=== PATIENT | female | born 1960 | race Caucasian/White ===

== ENCOUNTER 2020-04-27 06:48 | Day surgery (SDC) | payer OTHER, SELFPAY ==
[2020-04-21 10:34] VITALS: BMI 38.4
--- NOTE | 2020-04-23 10:06 | MHC.SHP ---
Pre-Procedural Eval Section A The patient is an INPATIENT: No The History & Physical has been completed within 30 days and I have reviewed it.: Yes Section B Chief Complaint: cataract left eye Allergies: Allergies Allergy/AdvReac Type Severity Reaction Status Date / Time No Known Allergies Allergy Verified 04/21/20 10:47 Plan Diagnosis/Plan: Unchanged I have reviewed the history and physical and performed a pertinent physical examination on my patient. No changes have occurred unless specified.
--- NOTE | 2020-04-24 09:15 | P.CONAN_ITS ---
Documented by User: Viridiana Tay 04/24/20 09:16 HPI - Anesthesia Eval Consult details Narrative: 60yo F for Cataract Extraction IOL Insertion No prev cataract PCP cleared chronic prednisone for lupus [facility] Past Medical History Medical History Back pain Depression History of lupus HTN (hypertension) Lab test negative for COVID-19 virus Sleep apnea Surgical History Surgical History H/O colonoscopy Hx of appendectomy Hx of hysterectomy Social History Social History (System 04/23/20 @ 10:53 by Eri Beverly) Smoking Status: Never smoker Use of substances other than those prescribed or required for medical reasons: No Advance Directives Information Provided: No Recently lost weight without trying: No Meds Allergies Allergy/AdvReac Type Severity Reaction Status Date / Time No Known Allergies Allergy Verified 04/27/20 07:15 Home Medications Medication Instructions Recorded Confirmed Type citalopram 10 mg PO DAILY 04/21/20 04/21/20 History hydrochlorothiazide 12.5 mg PO DAILY 04/21/20 04/21/20 History lisinopril 10 mg PO DAILY 04/21/20 04/21/20 History prednisone 5 mg PO DAILY 04/21/20 04/21/20 History Exam Exam Date and Time: April 24, 2020 0915 Height,Weight and Vital Signs: Height 5 ft 4 in Weight 101.605 kg Assessment and Plan Assessment Anesthesia Assessment: Chart Reviewed Documented by User: Marce Mcguire 04/27/20 07:23 [facility] Past Medical History Medical History Back pain Depression History of lupus HTN (hypertension) Lab test negative for COVID-19 virus Sleep apnea Surgical History Surgical History H/O colonoscopy Hx of appendectomy Hx of hysterectomy Social History Social History (System 04/23/20 @ 10:53 by Eri Beverly) Smoking Status: Never smoker Use of substances other than those prescribed or required for medical reasons: No Advance Directives Information Provided: No Recently lost weight without trying: No Meds Allergies Allergy/AdvReac Type Severity Reaction Status Date / Time No Known Allergies Allergy Verified 04/27/20 07:15 Home Medications Medication Instructions Recorded Confirmed Type citalopram 10 mg PO DAILY 04/21/20 04/21/20 History hydrochlorothiazide 12.5 mg PO DAILY 04/21/20 04/21/20 History lisinopril 10 mg PO DAILY 04/21/20 04/21/20 History prednisone 5 mg PO DAILY 04/21/20 04/21/20 History Exam Airway Mallampati Class: II TM Dist: >3cm Neck ROM: Full Heart: RRR Lungs: CTA Assessment and Plan Assessment Anesthesia Assessment: Anesthesia Plan Discussed and Chart Reviewed Final Anesthetic Review NPO: Yes (Sip water with meds) ASA Class: III Final Preanesthetic Review: Meds/Allgs Chart Reviewed and Consent Obtained/Reviewed Patient Risk: Low Procedure Risk: Low Anesthetic Plan Anesthetic Plan: MAC: Disposition: Standard PACU
[2020-04-27 07:18] VITALS: BP 145/71; PULSE 83; RESP 18; TEMP 36.7; O2SAT 97
[2020-04-27] MEDS: Lactated Ringers 500 ML 50 ML IV (07:22)
[2020-04-27] MEDS: Tetracaine HCl/PF 0.5% Oph Sol 4 ML DROPS 1 DROP EYE-LEFT (07:30)
[2020-04-27] MEDS: Phenylephrine HCL 2.5% Oph SoL 2 ML BOTTLE 1 DROP EYE-LEFT ×3 (07:32→07:43)
[2020-04-27] MEDS: Tropicamide 1 % Ophth Sol 3 ML BTL 1 DROP EYE-LEFT ×3 (07:35→07:45)
--- NOTE | 2020-04-27 08:53 | HO.PNOPHT ---
Ophthalmology Procedure Procedure Date of Service: 04/27/20 Ophthalmology Viscoelastic: Healon Duet Dual Pack Pro Ophthalmology Lenses: TECFRED [id number] (18) Procedure Notes: PREOPERATIVE DIAGNOSIS: Decreased visual acuity left eye secondary to cataract POSTOPERATIVE DIAGNOSIS: Same PROCEDURE: Left cataract extraction with intraocular lens insertion SURGEON: Dustin Stokes M.D. ANESTHESIA: Topical/MAC ESTIMATED BLOOD LOSS: None COMPLICATIONS: None After obtaining informed consent, the patient was brought to the operation room suite and placed in the supine position. After adequate sedation per anesthesia, topical drops of Tetracaine were given to the left eye. The eye was then prepped and draped in the usual sterile fashion. The operating room microscope was then positioned over the operative eye and a lid speculum placed. A paracentesis was created. Viscoelastic was then instilled into the anterior chamber. A three plane incision was then created temporally, utilizing a 2.85 mm keratome. Capsulotomy forceps were then utilized to create a circular tear capsulotomy. Hydrodissection and hydrodelineation were carried out until adequate mobilization of the nucleus occurred. Phacoemulsification was then utilized to remove the dense central nucleus followed by removal of the cortical material utilizing the automated aspiration irrigation unit. Viscoat elastic was instilled into the posterior capsular bag followed by placement of a posterior chamber intraocular lens without difficulty. The residual Viscoat elastic was then removed utilizing the automated IA machine. The wound was check and found to be watertight. The patient tolerated the procedure well and the lid speculum was removed. Intracameral injection of Vigamox 0.1 mL followed by a subtenon injection of Kenalog-40 0.2 mL were administered. The patient will be seen in the a.m.
[2020-04-27 08:55] VITALS: BP 125/71; PULSE 72; RESP 12; TEMP 36.9; O2SAT 97
--- NOTE | 2020-04-27 08:55 | HO.POSTANES ---
Post Anesthesia Evaluation Post Anesthesia Evaluation Vital Signs: Vital Signs Temp Pulse Resp BP Pulse Ox 04/27/20 07:18 98.1 F 83 18 145/71 H 97 Anesthesia: Monitored Mental Status: Awake Pain Control: Satisfactory Nausea/Vomiting: None Hydration: Adequate Anesthesia-Related Issues: No Anes. Related Issues
== END 2020-04-27 10:00 | disposition home or self-care (01) ==
PROVIDERS: PCP Internal Medicine; Visit Provider Ophthalmology
PROC: (CPT 66985; principal; 2020-04-27 09:00)
DX: H25.12 Age-related nuclear cataract, left eye (principal); H54.7 Unspecified visual loss; I10 Essential (primary) hypertension; M32.9 Systemic lupus erythematosus, unspecified; F32.9 Major depressive disorder, single episode, unspecified; G47.33 Obstructive sleep apnea (adult) (pediatric); Z79.52 Long term (current) use of systemic steroids; Z79.899 Other long term (current) drug therapy; Z99.89 Dependence on other enabling machines and devices; Z87.891 Personal history of nicotine dependence
CPT/HCPCS: 66984; J2250; J3010; J3300; V2632

== ENCOUNTER 2020-11-13 10:26 | Outpatient (REF) | payer OTHER, SELFPAY ==
--- NOTE | ~2020-11-13 | MM_ITS ---
EXAMINATION: MM SCREENING DIGITAL BREAST TOMOSYNTHESIS, BILATERAL CLINICAL INFORMATION: Screening. Asymptomatic. The lifetime risk of breast cancer based on the Tyrer-Cuzick Model is 8%. COMPARISON: Mammography: 10/30/2019, 08/06/2018, 06/07/2017 TECHNIQUE: Digital breast tomosynthesis is performed in both the craniocaudal and mediolateral oblique views along with computer-aided detection (CAD). Synthesized 2D images are generated from the tomosynthesis. FINDINGS: There are scattered areas of fibroglandular density (ACR BI-RADS breast composition Category b). There are no significant masses, abnormal calcifications, or other abnormalities. Parenchymal pattern is similar to prior studies. The axilla and skin contours are unremarkable. MM/MM tomosynthesis screening BI IMPRESSION: No mammographic evidence of malignancy. ASSESSMENT: BI-RADS 1: Negative RECOMMENDATION: Routine annual mammography screening. This patient's information was entered into a reminder system with a target due date for their next mammogram.
== END 2020-11-13 10:27 | disposition home or self-care (01) ==
LOC: HO.MAMMO 10:26
PROVIDERS: Visit Provider Internal Medicine
DX: Z12.31 Encounter for screening mammogram for malignant neoplasm of breast (principal)
CPT/HCPCS: 77063; 77067

== ENCOUNTER 2022-01-24 11:49 | Outpatient (REF) | payer OTHER, SELFPAY ==
--- NOTE | ~2022-01-24 | MM_ITS ---
EXAMINATION: MM SCREENING DIGITAL BREAST TOMOSYNTHESIS, BILATERAL CLINICAL INFORMATION: Screening. Asymptomatic. The lifetime risk of breast cancer based on the Tyrer-Cuzick Model is 9.3%. COMPARISON: Mammography: November 13, 2020 and studies dating back to October 07, 2013 TECHNIQUE: Digital breast tomosynthesis is performed in both the craniocaudal and mediolateral oblique views along with computer-aided detection (CAD). Synthesized 2D images are generated from the tomosynthesis. FINDINGS: The breasts are almost entirely fatty (ACR BI-RADS breast composition Category a). There are no significant masses, abnormal calcifications, or other abnormalities. MM/MM tomosynthesis screening BI IMPRESSION: No significant changes from prior exam. ASSESSMENT: BI-RADS 1: Negative RECOMMENDATION: Routine annual mammography screening. This patient's information was entered into a reminder system with a target due date for their next mammogram.
== END 2022-01-24 11:50 | disposition home or self-care (01) ==
LOC: HO.MAMMO 11:49
PROVIDERS: PCP Internal Medicine; Visit Provider Internal Medicine
DX: Z12.31 Encounter for screening mammogram for malignant neoplasm of breast (principal)
CPT/HCPCS: 77063; 77067

== ENCOUNTER 2022-04-13 13:09 | Outpatient (REF) | payer OTHER, SELFPAY ==
--- NOTE | ~2022-04-13 | MM_ITS ---
EXAMINATION: BONE DENSITOMETRY CLINICAL INDICATION: Menopausal. COMPARISON: None (current study represents initial baseline exam). TECHNIQUE: Using a [employer] DXA System (software version: 13.1) manufactured by [employer], dual-energy x-ray absorptiometry was performed of the lumbar spine and left hip. The images are of good technical quality. Summary results are attached. FINDINGS: AP SPINE L1-L4: BMD 1.018 g/cm2, Z-score -1.3, T-score -1.3, osteopenia. LEFT FEMUR, NECK: BMD 0.902 g/cm2, Z-score -0.5, T-score -1.0, normal. LEFT FEMUR, TOTAL: BMD 0.991 g/cm2, Z-score 0.0, T-score -0.1, normal. IDENTIFIED RISK FACTORS: Bilateral oophorectomy, early menopause, glucocorticoids (chronic), history of fracture (adult), hysterectomy, secondary osteoporosis, thiazide. HISTORY OF FRACTURE: Humerus, Ankle. MEDICATIONS: None listed. MM/XR DEXA axial skeleton IMPRESSION: 1. DIAGNOSIS: Osteopenia based on the lowest T-score value of -1.3 in the lumbar spine applying World Health Organization criteria. 2. 10-YEAR FRACTURE RISK PREDICTION, FRAX: Major osteoporotic fracture (clinical spine, forearm, hip or shoulder) 17.3%. Hip fracture 1.1%. 3. Treatment Recommendations: NOF guidelines recommend consideration for treatment in postmenopausal women and men age 50 and older presenting with the following: -A hip or vertebral (clinical or morphometric) fracture. -T-score less than or equal to -2.5 at the femoral neck or spine after appropriate evaluation to exclude secondary causes. -Low bone mass at the hip or spine and a 10-year fracture probability by FRAX of greater than or equal to 3% for hip fracture or greater than or equal to 20% for major osteoporotic fracture based on the [place] adapted WHO algorithm. 4. Other Recommendations: All treatment decisions require clinical judgment and consideration of individual patient factors, including patient preferences, comorbidities, previous drug use, risk factors not captured in the FRAX model (e.g. frailty, falls, vitamin D deficiency, increased bone turnover, interval significant decline in bone density) and possible under or overestimation of fracture risk by FRAX. Additional medical evaluation for secondary cause of low bone mineral density may be appropriate. FUTURE SCAN RECOMMENDATION: People with diagnosed cases of osteoporosis or at high risk for fracture should have regular bone mineral density tests. For patients eligible for Medicare, routine testing is allowed once every 2 years. The testing frequency can be increased to one year for patients who have rapidly progressing disease, those who are receiving or discontinuing medical therapy to restore bone mass, or have additional risk factors.
== END 2022-04-13 13:10 | disposition home or self-care (01) ==
LOC: HO.MAMMO 13:09
PROVIDERS: Visit Provider Nurse Practitioner Adult Health
DX: Z13.820 Encounter for screening for osteoporosis (principal); Z78.0 Asymptomatic menopausal state
CPT/HCPCS: 77080

== ENCOUNTER 2022-05-23 10:45 | Outpatient (REF) | payer OTHER, SELFPAY ==
--- NOTE | ~2022-05-23 | XR_ITS ---
EXAMINATION: XR CHEST CLINICAL INFORMATION: Symptoms and signs involving the chest COMPARISON: None TECHNIQUE: 2 views of the chest were obtained. FINDINGS: No significant abnormality is noted involving the heart, lungs, mediastinum, bony thorax or soft tissues. XR/XR chest 2V IMPRESSION: No acute disease.
[2022-05-23 14:44] LABS: Influenza A PCR NEGATIVE (Negative); Influenza B PCR NEGATIVE (Negative); Resp Syncy Virus RNA Qual PCR NEGATIVE (Negative); SARS COV2 PCR INHOUSE NEGATIVE (Negative)
== END 2022-05-23 10:46 | disposition home or self-care (01) ==
LOC: HO.HMGCX 10:45
PROVIDERS: PCP Internal Medicine; Visit Provider Physician Assistant
DX: Z20.822 Contact with and (suspected) exposure to COVID-19 (principal); R09.89 Other specified symptoms and signs involving the circulatory and respiratory systems; B34.9 Viral infection, unspecified
CPT/HCPCS: 0241U; 71046

== ENCOUNTER 2022-06-19 08:09 | Emergency (ER) | payer OTHER, SELFPAY ==
[2022-06-19 08:15] VITALS: BP 149/59; PULSE 65; RESP 16; TEMP 36.6; O2SAT 70; BMI 37.8
--- NOTE | 2022-06-19 09:05 | ED_ITS ---
HPI - Wound/Laceration General Chief Complaint: Wound/Laceration Stated Complaint: dog bite 06/18/22 Time Seen by Provider: 06/19/22 08:29 Source: patient Mode of arrival: ambulatory Limitations: no limitations History of Present Illness HPI narrative: 62-year-old female with no significant past medical history presents to the emergency department after sustaining a dog bite yesterday on her right forearm. She states the dog was her nieces and is up-to-date on all vaccinations including rabies. She states she has 2 puncture wounds on the inner aspect of her right forearm. She states after the bite she cleaned them well with soap and water, however; she states this morning she noted increased swelling without any drainage. She denies any fevers, chills, red streaking, paresthesias, or weakness of her right arm. She is unsure when her last tetanus shot was. Body four view annotation: 1. Related Data Home Medications Medication Instructions Recorded Confirmed citalopram 10 mg tablet 10 mg PO DAILY 04/21/20 04/21/20 hydrochlorothiazide 12.5 mg tablet 12.5 mg PO DAILY 04/21/20 04/21/20 lisinopril 10 mg tablet 10 mg PO DAILY 04/21/20 04/21/20 Previous Rx's Medication Instructions Recorded albuterol sulfate 90 mcg/actuation 1 inh inhalation QID PRN shortness 08/23/21 aerosol inhaler of breath or wheezing #6.7 grams amoxicillin 875 mg-potassium 1 tab PO BID 10 days #20 tabs 05/23/22 clavulanate 125 mg tablet prednisone 20 mg tablet 40 mg PO DAILY 5 days #10 tabs 05/23/22 doxycycline hyclate 100 mg capsule 100 mg PO BID 7 days #14 caps 06/19/22 metronidazole 500 mg tablet 500 mg PO TID 7 days #21 tabs 06/19/22 Allergies Allergy/AdvReac Type Severity Reaction Status Date / Time No Known Allergies Allergy Verified 05/23/22 10:29 Review of Systems Review of Systems: In addition to documented HPI above, the additional ROS was obtained: Constitutional: No Weight loss, No Fever, No Chills ENT/Mouth: No Ear Pain, No Nasal Congestion, No Sinus Pain, No Hoarseness, No sore throat, No Rhinorrhea, No Swallowing Difficulty Cardiovascular: No Chest Pain, No SOB Respiratory: No Cough, No Sputum, No Wheezing Gastrointestinal: No Nausea, No Vomiting, No Diarrhea, No Constipation, No Abdominal pain Genitourinary: No Dysuria, No Urinary Frequency, No Hematuria, No Urinary Incontinence/retention, No Urgency, No Flank Pain Musculoskeletal: No joint pain, No Myalgias, No Joint Swelling Skin: No Skin Lesions, No rash. Neuro: No Weakness, No Numbness, No Paresthesias PMFSH Past Medical History Source: old records reviewed and obtained from family Medical History (Updated 06/19/22 @ 08:57 by Aliyah Matamoros NP) Back pain Depression History of lupus HTN (hypertension) Lab test negative for COVID-19 virus Sleep apnea Surgical History H/O colonoscopy Hx of appendectomy Hx of hysterectomy Social History Social History (System 04/23/20 @ 10:53 by Eri Beverly) Patient Tobacco Use Status: Never used Tobacco Advance Directives: No Advance Directives Information Provided: No Physical Exam Vital Signs: Vital Signs: Last Vital Signs Temp 97.9 F 06/19/22 08:15 Pulse 65 06/19/22 08:15 Resp 16 06/19/22 08:15 BP 149/59 H 06/19/22 08:15 Pulse Ox 70 L 06/19/22 08:15 O2 Del Method 06/19/22 08:15 BMI result Body Mass Index 37.8 Nursing notes and vital signs reviewed. GENERAL APPEARANCE: A&0 x 4, generally well appearing, no acute distress HENMT: Normal to inspection, atraumatic, face symmetrical. Normal external ears, nose, and oropharynx clear. EYE: PERRLA, EOM intact, structures appear normal NECK: Supple without lymphadenopathy. No stiffness or restricted ROM. CHEST: Normal to inspection HEART: Normal rate and regular rhythm, normal S1/S2, no M/R/G LUNGS: LS CTA, moving air well. Able to speak in complete sentences. No crackles, wheezes, or rhonchi auscultated ABDOMEN: Soft, nontender, nondistended. Normal bowel sounds noted BACK: No CVAT, no obvious deformity EXTREMITIES: Moving all extremities without difficulty. No cyanosis, clubbing, or edema. Normal capillary refill. NEUROLOGICAL: Alert and oriented, moving all 4 extremities with equal strength. CN not formally tested but appearing grossly intact. Observed to ambulate with normal gait. Cognition normal SKIN: Warm and dry. Two puncture wounds noted on the inner right forearm with ecchymosis and swelling. No warmth or drainage noted. PSYCH: Cooperative, normal affect, normal thought process 0845: She was assessed in the emergency department. To clean puncture wounds noted on right forearm with ecchymosis and swelling. No warmth a prelim drainage. Plan for tetanus shot as patient does not know last tetanus. Patient reports an allergy to Augmentin, Flagyl and doxycycline sent to preferred pharmacy for antibiotic prophylaxis. Patient is safe for discharge at this time with plan [id number] Tylenol and/or NSAIDs for control of pain. HPI, PE, diagnostics, and plan discussed with patient with no unanswered questions at this time. Strict return precautions given to return to the emergency department with new, worsening, or concerning emergent symptoms. Recommended to follow-up with there primary care provider for further treatment and management. Discharge Plan Discharge Clinical Impression: Animal bite of right forearm Patient Disposition: Home, Self-Care Instructions: Animal Bite (ED) Additional Instructions: You were seen in the emergency department for complaints of an animal bite on your right forearm. Antibiotics have been prescribed your preferred pharmacy. Please take as directed for full course. Please return to the emergency department new, worsening, or concerning symptoms. Please follow-up your primary care provider in 24-48 hours for further evaluation and management. Prescriptions: New metronidazole 500 mg tablet 500 mg PO TID 7 Days Qty: 21 0RF doxycycline hyclate 100 mg capsule 100 mg PO BID 7 Days Qty: 14 0RF No Action citalopram 10 mg Tablet 10 mg PO DAILY lisinopril 10 mg Tablet 10 mg PO DAILY hydrochlorothiazide 12.5 mg Tablet 12.5 mg PO DAILY albuterol sulfate 90 mcg/actuation HFA aerosol inhaler 1 inh inhalation QID PRN (Reason: shortness of breath or wheezing) Qty: 6.7 1RF amoxicillin-pot clavulanate 875-125 mg tablet 1 tab PO BID 10 Days Qty: 20 0RF prednisone 20 mg tablet 40 mg PO DAILY 5 Days Qty: 10 0RF Referrals: Boone Escalante MD [Primary Care Provider] - Stand Alone Forms: Work/School Release Print Language: South African
[2022-06-19] MEDS: Diphth,Pertus(ACell),Tet Adult 0.5 ML SYRINGE IM (09:55)
== END 2022-06-19 10:15 | disposition home or self-care (01) ==
PROVIDERS: Emergency Provider Emergency Medicine; PCP Internal Medicine
DX: S51.851A Open bite of right forearm, initial encounter (principal); S50.811A Abrasion of right forearm, initial encounter; W54.0XXA Bitten by dog, initial encounter; Y93.9 Activity, unspecified; Y92.9 Unspecified place or not applicable; Y99.9 Unspecified external cause status; Z23 Encounter for immunization
CPT/HCPCS: 90471; 90715; 99282; 99284

== ENCOUNTER 2023-01-28 08:26 | Outpatient (REF) | payer OTHER, SELFPAY | END 2023-01-28 08:27 | disposition home or self-care (01) | LOC: HO.MAMMO 08:26 | PROVIDERS: PCP Internal Medicine; Visit Provider Internal Medicine | DX: Z12.31 Encounter for screening mammogram for malignant neoplasm of breast (principal) | CPT/HCPCS: 77063; 77067 ==

== ENCOUNTER → 2023-01-28 08:45 | Outpatient (BNV) | payer OTHER, SELFPAY | PROVIDERS: PCP Internal Medicine; Visit Provider Radiology Diagnostic Radiology | DX: Z12.31 Encounter for screening mammogram for malignant neoplasm of breast (principal) | CPT/HCPCS: 77063; 77067 ==

== ENCOUNTER 2024-02-03 08:06 | Outpatient (REF) | payer OTHER, SELFPAY ==
--- NOTE | ~2024-02-03 | MM_ITS ---
EXAMINATION: MM SCREENING DIGITAL BREAST TOMOSYNTHESIS, BILATERAL CLINICAL INFORMATION: Screening. Asymptomatic. COMPARISON: Mammography: Comparison is made with available priors TECHNIQUE: Digital breast mammography with tomosynthesis is performed in both the craniocaudal and mediolateral oblique views along with computer-aided detection (CAD). FINDINGS: There are scattered areas of fibroglandular density (ACR BI-RADS breast composition Category b). There are no significant masses, abnormal calcifications, or other abnormalities. MM/MM tomosynthesis screening BI IMPRESSION: No mammographic evidence of malignancy. ASSESSMENT: BI-RADS BI-RADS 1 - Negative RECOMMENDATION: Routine annual mammography screening. 1 year F/U This examination should not preclude the clinical evaluation of a suspicious palpable abnormality. This patient's information was entered into a reminder system with a target due date for their next mammogram. Electronically signed by: Ceci Johnson DO 02/13/2024 09:23 AM PIPE
== END 2024-02-03 08:07 | disposition home or self-care (01) ==
LOC: HO.MAMMO 08:06
PROVIDERS: PCP Family Medicine; Visit Provider Internal Medicine
DX: Z12.31 Encounter for screening mammogram for malignant neoplasm of breast (principal)
CPT/HCPCS: 77063; 77067

== ENCOUNTER → 2024-02-03 08:30 | Outpatient (BNV) | payer OTHER, SELFPAY | PROVIDERS: PCP Family Medicine; Visit Provider Internal Medicine | DX: Z12.31 Encounter for screening mammogram for malignant neoplasm of breast (principal) | CPT/HCPCS: 77063; 77067 ==

== ENCOUNTER 2024-12-12 13:04 | Outpatient (REF) | payer OTHER, SELFPAY ==
--- NOTE | ~2024-12-12 | MM_ITS ---
EXAMINATION: MM DIAGNOSTIC DIGITAL BREAST TOMOSYNTHESIS, BILATERAL Bilateral Limited ultrasound. CLINICAL INFORMATION: Right breast pain upper inner breast. Family history of breast cancer including patient's mother. COMPARISON: Mammography: Comparison is made with relevant prior exams. TECHNIQUE: Digital breast mammography with tomosynthesis is performed in both the craniocaudal and mediolateral oblique views along with computer-aided detection (CAD). FINDINGS: There are scattered areas of fibroglandular density (ACR BI-RADS breast composition Category b). Left: Asymmetry lateral breast middle depth on CC view. No suspicious calcifications or other abnormal findings. Targeted color Doppler ultrasound scanning in the left breast from 10-3 o'clock demonstrates normal fibroglandular breast tissue. There is no sonographic abnormal finding. Right: Triangular marker at site of patient's pain upper inner breast without underlying abnormal finding. No suspicious calcifications or other abnormal findings. Targeted color Doppler ultrasound scanning in the patient area of pain 10-2 o'clock demonstrates normal fibronodular breast tissue. Results are provided to the patient at time of visit by the technologist. MM/MM tomosynthesis diagnostic BI IMPRESSION: Right: No mammographic or sonographic abnormality to account for the patient's right breast pain. Recommend clinical evaluation and follow-up. Left: Asymmetry lateral breast middle depth on CC view without sonographic correlate which partially effaces on additional imaging. This is probably benign and six-month follow-up mammogram is recommended for further evaluation of stability. ASSESSMENT: BI-RADS BI-RADS 3 - Probably benign finding(s) - 6 month follow-up suggested RECOMMENDATION: 6 Month F/U This patient's information was entered into a reminder system with a target due date for their next mammogram. Electronically signed by: Ceci Johnson DO 12/12/2024 02:31 PM EDT
--- OUTSIDE RECORDS SUMMARY | 2024-12-12 17:07 | XMS_ITS | Patient Health Record ---
Author Organization [facility] Address [address] [place] [address] Care Team Providers Care Undercoater Name Role Phone Ava HANSEN, Boone Primary Care Provider Augusto Britt [phone] Reason For Referral No Information Medications Medication SIG (Take, Route, Fr equency, Duration) Notes Start Date End Date Status Propranolol HCl 80mg 1 QD Active Suprep Bowel Prep 1 as directed Orally a s directed for 1 dose 06/26/2013 Active Ibuprofen 800mg prn--not QD Ac tive Problems Problem Type SNOMED Code ICD Code Onset Dates Problem Status W/U Status Risk Notes Problem Pre-surgery evaluation (517827242) Other specified pre-operative examination (V72.83) Active confirmed Problem Screening for malignant neoplasm of colon (481531723) Screen for colon cancer (V76.51) Active confirmed Plan Of Treatment Future Test Test Name Order Date COLONOSCOPY 06/26/2013 Insurance Providers Payer Name Payer Address Payer Phone Subscriber Number Group Number Insured Name Patient Relationship to Insured Coverage Start Date Coverage End Date [facility] [address] [facility] [place] [phone] [id number] FAIZA VEGA Self - patient is the insured Medical (General) History Medical History History ICD Code Denies [place],DM,CVA,Lung disease,renal dise ase ? of Hypothyroidism--currently not on th yroid replacement and being observed HTN Migraines Lupus--previously on Plaquenil and predn isone--sees Dr. Alicea Arthritis in hands Surgical History Surgery Date(Month/Year) YEMI appendectomy
--- OUTSIDE RECORDS SUMMARY | 2024-12-12 17:07 | XMS_ITS | Patient Health Record ---
Author Organization [facility] Address [address] [facility] [place] [address] Care Team Providers Care Story Analyst Name Role Phone Boone Escalante MD Primary Care Provider Lisa Grewal Unavailable [phone] Allergies No Known Allergies Reason For Referral No Information Medications Medication SIG (Take, Route, Frequency, Duration) Notes Start Date End Date Status Atorvastatin Calcium 10 MG 1 tablet Oral ly Once a day; Duration: 30 day(s) Active hydroCHLOROthiazide 25 MG 1 tablet in th e morning Orally Once a day; Duration: 30 day(s) Active Citalopram Hydrobromide 20 MG 1 tablet O rally Once a day; Duration: 30 day(s) Active Gabapentin Active Propranolol HCl 80 MG as directed Orally Active Neurontin 300 MG 1 capsule Orally Twi ce a day; Duration: 30 day(s) 05/04/2022 Active Problems Problem Type SNOMED Code ICD Code Onset Dates Problem Status W/U Status Risk Notes Problem Localized, primary osteoarthritis of the ankle and/or foot (858057688) Osteoarthritis of right ankle and foot (M19.071) Active confirmed Plan Of Treatment Pending Test Test Name Order Date X ray : Foot, right 3V 05/04/2022 Insurance Providers Payer Name Payer Address Payer Phone Subscriber Number Group Number Insured Name Patient Relationship to Insured Coverage Start Date Coverage End Date [facility] [address] [place] [address] [id number] Yrn Jalloh Spouse - patient is the spouse of the insured Medical (General) History Medical History History ICD Code Arthritis covid-19 Fibromyalgia High blood pressure Lupus Chicken pox Surgical History Surgery Date(Month/Year) hysterectomy appendectomy
--- OUTSIDE RECORDS SUMMARY | 2024-12-12 17:07 | XMS_ITS | Clinical Summary ---
Author Organization [facility] Address [address] [address] Phone Care Team Providers Care Filter Press Tender Head Name Role Phone Aguusto Sainz DO Primary Care Provider [phone] Allergies No known active allergies Medications atorvastatin (LIPITOR) 10 MG tablet Take 10 mg by mouth daily. Active citalopram (CELEXA) 20 MG tablet Take 20 mg by mouth daily. Active hydroCHLOROthia zide (HYDRODIURIL) 25 MG tablet Take 25 mg by mouth daily. Active SUMAtriptan (IMITREX) 50 MG tablet Take 50 mg by mouth once as needed for migraine. Can repeat dose in 2 hours if needed. Do not exceed 2 doses in a 24 hour period. Max dose 200mg/ day Active propranoloL (INDERAL LA) 80 mg 24 hr capsule Take 80 mg by mouth daily. Active LORazepam (ATIVAN) 1 MG tabletIndicatio ns:Anxiety,Ermelinda strophobia Take 1mg tablet by mouth one hour prior to MRI, repeat if necessary for claustrophobia . 2 tablet 4 Active meloxicam (MOBIC) 15 MG tablet Take 15 mg by mouth daily. Active Active Problems Problem Noted Date Diagnosed Date History of systemic lupus erythematosus 12/07/19 24 Overview (04/02/2024): Dx'd by PCP - p/w bl volar wrist swelling No Raynaud's hx; describes recurrent pleuritis but no episodes since prior to c. 2017 No tx other than hydroxychloroquine and prednisone; hydroxychloroquine dc'd [address]um Dr[address] Roger Lobato -----> Dr. Angel Dunn Assessment & Plan (04/08/2024 5:37 PM EST): Remains clinically quiescent off hydroxychloroquine since 2011; rheum labs from 11/2023 ordered by former rheum requested for my review today. Rheum labs 10/2023 subsequently recd and show: CBC nl ESR 13 eGFR 77 TRUMAN 1:640 DFS C3 nl C4 nl Assessment & Plan (12/07/2023 10:55 AM EDT): No rheum records or baseline TRUMAN available for my review today; I suspect that disease has been quiescent for years given that her former rheum recommended dc of hydroxychloroquine. Will review relevant records when they are available. Primary osteoarthritis of both hips 12/07/2023 Overview (04/02/2024): Progressively more symptomatic in the past several yrs; modest benefit with celecoxib ----> meloxicam Plain films 10/2023 show nl hip and sacroiliac joints but bony hypertrophy of greater trochanters bl No sustained benefit following injections to bl trochanteric bursae 12/2023 Assessment & Plan (04/02/2024 1:25 PM EST): R > L hip sxs; plan is for right DEEPAK scheduled for 06/05/24 per patient (ortho in [place]). Assessment & Plan (12/07/2023 10:54 AM EDT): Empiric steroid injections today as above; plain film l-spine for completeness. Advanced imaging of one hip pending clinical response to steroid injections and plain film findings. Family History Medical History Relation Comments Diabetes Father Pancreatic cancer Father Breast cancer Mother COPD Mother Coronary artery disease Mother Heart failure Mother Hyperlipidemia Mother Hypertension Mother Stroke Mother Relation Status Comments Father Mother Social History Tobacco Use Types Packs/Day Years Used Date Smoking Tobacco: Never Smokeless Tobacco: Never Alcohol Use Standard Drinks/Week Comments Not Currently 0 (1 standard drink = 0.6 oz pur e alcohol) Education Answer Date Recorded Are you interested in more education? Not on letty e 05/02/2023 Are you concerned about learning? Not on file 05/02/2023 No 05/02/2023 No 05/02/2023 Digital Access Answer Date Recorded No 05/02/2023 No 05/02/2023 Reliable internet access at home? Not on file 05/02/2023 Device with a working camera? Not on file Comments Unknown Sex and Gender Information Value Date Recorded Sex Assigned at Not on file Legal Sex Female 8:42 AM EDT Gender Identity Not on file Sexual Orientation Not on file Last Filed Vital Signs Vital Sign Reading Time Taken Comments Blood Pressure 112/68 04/02/2024 12:51 PM EST Pulse 89 12/07/2023 9:20 AM EDT Temperature - - Respiratory Rate - - Oxygen Saturation 98% 12/07/2023 9:20 AM EDT Inhaled Oxygen Concentration - - Weight 96.6 kg (213 lb) 04/02/2024 12:51 PM EST Height 162.6 cm (5' 4.02 ) 04/02/2024 12:[address] Body Mass Index 36.54 04/02/2024 12:51 PM EST Plan of Treatment Upcoming Encounters Date Type Department Care Team (Late st Contact Info) Description 04/02/2025 9:40 AM EST Office Visit [facility] Rheumatology [address] [place] [address] Keli Roberts MD, MPH 22 [facility], [address] [address] [email or web address] Health Maintenance Due Date Last Done Comments LIPID PANEL 1962 POTASSIUM LEVEL 1962 DEPRESSION SCREENING 1974 HEPATITIS C SCREENING 1980 HIV ONE-TIME SCREENING (18-65 YEARS) 1980 PAP SMEAR 1983 SCREENING FOR DIABETES 1997 MAMMOGRAM 2002 COLOGUARD 2007 COLONOSCOPY 2007 COLORECTAL CANCER SCREENING 2007 FIT TEST 2007 FOBT 2007 SIGMOIDOSCOPY 2007 VIRTUAL COLONOSCOPY 2007 PNEUMOCOCCAL VACCINES (50+ years) (1 of 1 - PCV) 2012 ZOSTER VACCINES (2 of 2) 07/02/2019 05/07/2019, 07/2019 INFLUENZA VACCINE (#1) 2024 3, 01/18/2021, 12/12/2019 COVID-19 VACCINE (2024- season) 2024 2021, 07/23/2020, 07/07/2020, Additional history exists Adult Td,Tdap Booster 06/19/2032 06/19/2022 RSV VACCINE (1 - 1-dose 75+ series) 2037 SMOKING STATUS SCREENING (Once After 26 Yrs) Completed 02/12/2024 HEPATITIS A VACCINES Aged Out No long er eligible based on patient's age to complete this topic HIB VACCINES Aged Out No longer eligi ble based on patient's age to complete this topic MENINGOCOCCAL VACCINES (ACWY) Aged Out No longer eligible based on patient's age to complete this topic MENINGOCOCCAL VACCINES (B) Aged Out N o longer eligible based on patient's age to complete this topic Medical Devices Not on file [place] [address] [place] [address] [facility] HMO Care Teams Filter Press Tender Head Relationship Specialty Start Date End Date Augusto Sainz DO [address] [place] [id number] [email or web address] PCP - General Family Medicine 12/07/23 Additional Source Comments The information contained in this document represents components of the legal health record. It is not the complete legal health record.[facility]
== END 2024-12-12 13:05 | disposition home or self-care (01) ==
LOC: HO.MAMMO 13:04
PROVIDERS: PCP Internal Medicine; Visit Provider Obstetrics & Gynecology
DX: N64.4 Mastodynia (principal); N63.12 Unspecified lump in the right breast, upper inner quadrant; N64.89 Other specified disorders of breast
CPT/HCPCS: 76642; 77062; 77066

== ENCOUNTER → 2024-12-12 13:35 | Outpatient (BNV) | payer OTHER, SELFPAY | PROVIDERS: PCP Internal Medicine; Visit Provider Internal Medicine | DX: N64.4 Mastodynia (principal); R92.8 Other abnormal and inconclusive findings on diagnostic imaging of breast | CPT/HCPCS: 77062; 77066 ==

== ENCOUNTER 2025-02-27 09:44 | Emergency (ER) | payer OTHER, SELFPAY ==
--- NOTE | ~2025-02-27 | US_ITS ---
CLINICAL HISTORY: RUQ pain Ultrasound abdomen limited Comparison: 02/27/2025 Findings: There are no gallstones. There is no gallbladder wall thickening or pericholecystic fluid. Common bile duct diameter estimated at 6 mm. Impression: 1. No cholelithiasis or evidence of biliary obstruction. This document has been electronically signed by: Rae Luz MD on 02/27/2025 15:30:07
--- NOTE | ~2025-02-27 | CT_ITS ---
CLINICAL HISTORY: R sided abd pain CT abdomen and pelvis with contrast Comparison: None provided Findings: The lung bases are clear. There is a small left kidney cysts. There is a 3 mm nonobstructive calculus within the right kidney. No ureteral calculus or hydronephrosis. Remaining abdominal organs are unremarkable. There are no calcified gallstones. There is thickening of a diverticulum within the midsigmoid colon. No obvious adjacent mesenteric edema. No colitis or bowel obstruction. Status post hysterectomy. Mildly limited evaluation of pelvic contents secondary to metallic artifact. Grossly unremarkable urinary bladder. Appendix not definitively seen. No secondary findings to suggest appendicitis. No acute fracture. IMPRESSION: 1. There may be a mild degree of diverticulitis of the sigmoid colon. 2. Tiny nonobstructive calculus within the right kidney. 3. There is mild infiltration of portions of the central mesentery. No lymphadenopathy. 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 This document has been electronically signed by: Rae Luz MD on 02/27/2025 14:00:51
[2025-02-27 09:58] VITALS: BP 141/72; PULSE 83; RESP 18; TEMP 36.7; O2SAT 98; BMI 24.3
--- OUTSIDE RECORDS SUMMARY | 2025-02-27 10:08 | XMS_ITS | Patient Health Record ---
Author Organization [facility] Address [address] [facility] [place] [address] Care Team Providers Care Modeling Analyst Name Role Phone Boone Escalante MD Primary Care Provider Lisa Grewal Unavailable [phone] Allergies No Known Allergies Reason For Referral [...] primary osteoarthritis of the ankle and/or foot (655482125) Osteoarthritis of right ankle and foot (M19.071) Active confirmed Plan Of Treatment Pending Test Test Name Order Date X ray : Foot, right 3V 05/04/2022 Insurance Providers Payer Name Payer Address Payer Phone Subscriber Number Group Number Insured Name Patient Relationship to Insured Coverage Start Date Coverage End Date [facility] [address] [place] [address] [id number] Yrn Jalloh Spouse - patient is the spouse of the insured Medical (General) History Medical History History ICD Code Arthritis covid-19 Fibromyalgia High blood pressure Lupus Chicken pox Surgical History Surgery Date(Month/Year) hysterectomy appendectomy
--- OUTSIDE RECORDS SUMMARY | 2025-02-27 10:08 | XMS_ITS | Patient Health Record ---
Author Organization [facility] Address [address] [place] [address] Care Team Providers Care Glass Designer Name Role Phone Boone Escalante MD Primary Care Provider Augusto Britt [phone] Reason For Referral No Information Medications Medication SIG (Take, Route, Frequency, Duration) Notes Start Date End Date Status Propranolol HCl 80mg 1 QD Active Suprep Bowel Prep 1 Solution as directed Orally as directed; Duration: 1 dose 06/26/2013 Active Ibuprofen 800mg prn--not QD Ac tive Social History Social History Additional Details Category Social Info Options Details Miscellaneous: Marital status: 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 Section Notes: Nonsmoker; no sig alcohol Problems Problem Type SNOMED Code ICD Code Onset Dates Problem Status W/U Status Risk Notes Problem Pre-surgery evaluation (396940306) Other specified pre-operative examination (V72.83) Active confirmed Problem Screening for malignant neoplasm of colon (688712727) Screen for colon cancer (V76.51) Active confirmed Plan Of Treatment Future Test Test Name Order Date COLONOSCOPY 06/26/2013 Insurance Providers Payer Name Payer Address Payer Phone Subscriber Number Group Number Insured Name Patient Relationship to Insured Coverage Start Date Coverage End Date [facility] [address] [place] [phone] [id number] FAIZA VEGA Self - patient is the insured Medical (General) History Medical History History ICD Code Denies DC,DM,CVA,Lung disease,renal dise ase ? of Hypothyroidism--currently not on yroid replacement and being observed HTN Migraines Lupus--previously on Plaquenil and predn isone--sees Dr. Alicea Arthritis in hands Surgical History Surgery Date(Month/Year) YEMI appendectomy
--- OUTSIDE RECORDS SUMMARY | 2025-02-27 10:08 | XMS_ITS | Clinical Summary ---
Author Organization [facility] Address [address] [address] Phone Care Team Providers Care Staff Nuclear Medicine Technologist Name Role Phone Augusto Sainz DO Primary Care Provider Allergies No known active allergies Medications atorvastatin [...] scheduled for 06/05/24 per patient (ortho in [place]). Assessment & Plan (12/07/2023 10:54 AM EDT): [...] Description 04/02/2025 9:40 AM EST Office Visit [facility] Rheumatology [address] [place] [address] Keli Roberts MD, MPH 22 [facility], [address] [address] [email or web address] Health Maintenance Due Date Last Done Comments [...] topic Medical Devices Not on [place] [address] [place] [address] [facility] HMO Care Teams Staff Nuclear Medicine Technologist Relationship Specialty Start Date End Date Augusto Sainz DO [address] [place] [phone] [email or web address] PCP - General Family Medicine 12/07/23 Additional Source Comments The information contained in this document represents components of the legal health record. It is not the complete legal health record.[facility]
--- NOTE | 2025-02-27 10:24 | ED.GENADULT ---
HPI - General Adult General Chief complaint: Abdominal Pain Stated complaint: Stomach Pain Time Seen by Provider: 02/27/25 09:57 Source: patient Mode of arrival: ambulatory Limitations: no limitations History of Present Illness ED Provider: JOHNATHAN Sy HPI narrative: Chief Complaint: ?Abdominal pain and ongoing back pain.? History of Present Illness: The patient presents to the ED for evaluation of abdominal pain that began earlier today. Pain is described as constant tenderness located in the right lower abdomen and right flank/back. She denies nausea, vomiting, fever, chills, urinary symptoms, or changes in bowel habits; bowel movements are normal. She has a history of chronic back pain and severe groin pain that has been present ?for so long,? for which an outpatient ultrasound of the back is scheduled for tomorrow. Abdominal pain is a new symptom compared to her baseline back/groin discomfort. She is post-appendectomy and has an intact gallbladder. She reports regular colonoscopies, the most recent approximately two years ago with two follow-up colonoscopies after that, all reported as normal. Past medical history includes systemic lupus erythematosus and prior hip surgery; recent orthopedic evaluation included extensive lab work and a physical exam to rule out hip pathology. She denies hypertension and diabetes. Related Data Home Medications ?Medication ?Instructions ?Recorded ?Confirmed citalopram 10 mg tablet 10 mg PO DAILY 04/21/20 04/21/20 hydrochlorothiazide 12.5 mg tablet 12.5 mg PO DAILY 04/21/20 04/21/20 lisinopril 10 mg tablet 10 mg PO DAILY 04/21/20 04/21/20 Previous Rx's ?Medication ?Instructions ?Recorded albuterol sulfate 90 mcg/actuation 1 inh inhalation QID PRN shortness 08/23/21 aerosol inhaler of breath or wheezing #6.7 grams amoxicillin 875 mg-potassium 1 tab PO BID 10 days #20 tabs 05/23/22 clavulanate 125 mg tablet prednisone 20 mg tablet 40 mg (2 x 20 mg) PO DAILY 5 days 05/23/22 #10 tabs doxycycline hyclate 100 mg capsule 100 mg PO BID 7 days #14 caps 06/19/22 metronidazole 500 mg tablet 500 mg PO TID 7 days #21 tabs 06/19/22 amoxicillin 875 mg-potassium 1 tab PO BID 7 days #14 tabs 02/27/25 clavulanate 125 mg tablet ketorolac 10 mg tablet 10 mg PO TID PRN pain 5 days #15 02/27/25 tabs Allergies Allergy/AdvReac Type Severity Reaction Status Date / Time No Known Allergies Allergy Verified 02/27/25 10:00 Review of Systems Review of Systems: Review of Systems: ? Constitutional: Denies fever, chills. ? Gastrointestinal: Reports right lower abdominal pain; denies nausea, vomiting, diarrhea, constipation (bowel movements normal). No history of diverticulitis. ? Genitourinary: Denies dysuria, hematuria, vaginal pain, or discharge. ? Musculoskeletal: Chronic back pain; chronic groin pain; status post hip surgery. ? Other systems: Not discussed. Family History: Not discussed. Yes all other systems are reviewed and are negative [facility] Past Medical History Attestation statement: The following information was validated with the patient. Source: old records reviewed and nursing notes reviewed Medical History (Updated 02/27/25 @ 16:07 by JOHNATHAN Hobbs) Sleep apnea Back pain History of lupus Depression Lab test negative for COVID-19 virus HTN (hypertension) Surgical History Hx of hysterectomy Hx of appendectomy H/O colonoscopy Social History Social History (System 04/23/20 @ 10:53 by Eri Beverly) Patient Tobacco Use Status: Never used Tobacco Smoked in Last 30 Days: No Use of substances other than those prescribed or required for medical reasons: No Advance Directives: No Advance Directives Information Provided: Yes Patient : No Physical Exam ED Exam Exam: Appearance: Alert.? Oriented X3.? No acute distress.? Head: Normocephalic, atraumatic, no step-offs or deformities Eyes: Pupils equal, round and reactive to light.? Neck: Normal inspection.? Neck supple.? CVS: Normal heart rate and rhythm.? Pulses normal.? Respiratory: No respiratory distress.? Breath sounds normal.? Abdomen: Soft and diffuse tenderness worse to the right side. Normoactive bowel sounds ? Skin: Skin warm and dry.? Normal skin color.? Normal skin turgor.? Extremities: No lower extremity edema.? No calf ttp. 5/5 strength to bilateral upper and lower extremities Back: No midline tenderness, no C-spine tenderness, full range of motion, no CVA tenderness bilaterally Neuro: Oriented X 3.? No motor deficit.? No sensory deficit. CN 2-12 intact Vital Signs: Vital Signs - 24 hr 02/27/25 09:58 02/27/25 12:06 02/27/25 14:05 Temperature 98.0 F 98.4 F 97.4 F Pulse Rate 83 72 74 Respiratory Rate 18 16 18 Blood Pressure 141/72 H 136/65 149/71 H Pulse Oximetry 98 98 97 Oxygen Delivery Method Room Air Room Air Room Air BMI result Body Mass Index 24.3 vss Course Reevaluation(s) Reevaluation #1: CBC unremarkable. Chemistry still pending. Patient's CBC with trace bacteria and a small amount of leukocyte esterases. Negative nitrates. Time: 11:15 Reevaluation #2: Patient reports improvement after Tylenol. CT abdomen pelvis with a mild degree of diverticulitis of the sigmoid colon she is tolerating p.o. will give oral antibiotics. Tiny nonobstructive calculus of the right kidney. 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 Toradol could help with this will also add prednisone 40 mg x 5 days. Abdominal ultrasound with no cholelithiasis or evidence of biliary obstruction. UA w/ trace bacteria --> UTI possible. Time: 16:04 Reevaluation #3: At this time patient to be discharged home. She is tolerating p.o. she has mild bump in transaminases and alk-phos will have her follow up with PCP for repeat labs. She will be discharged with Augmentin. Educated patient on diagnosis and treatment plan, answered all question, patient verbalizes understanding. At this time patient will be discharged home, advised to return with new or worsening symptoms. Educated on worrisome signs and symptoms and when to return. At this time I feel comfortable discharge home. Time: 16:06 Medications Administered Discontinued Medications Generic Name Dose Route Start Last Admin Trade Name Freq PRN Reason Stop Dose Admin Acetaminophen 1,000 mg in 100 mls @ 400 mls/hr 02/27/25 14:37 02/27/25 15:10 Ofirmev IV 02/27/25 14:51 Infused ONCE ONE Infusion Iohexol 100 ml 02/27/25 12:44 02/27/25 12:45 Iohexol 350 Mg/Ml 100 Ml Infus..Btl IV 02/27/25 12:45 85 ml ONCE ONE Administration Ketorolac Tromethamine 15 mg 02/27/25 15:04 02/27/25 15:28 Ketorolac Tromethamine 15 Mg/Ml Vial IVPUSH 02/27/25 15:05 15 mg ONCE ONE Administration Medical Decision Making Medical Decision Making MDM Narrative: Patient with systemic lupus erythematosus, chronic back/groin pain, and prior appendectomy presenting with new-onset right lower abdominal pain in the setting of chronic back pain. Denies systemic or urinary symptoms. Imaging planned to evaluate abdominal and back pathology; will consider additional gallbladder ultrasound after CT results. Problem #1: Right lower abdominal pain, acute Assessment: New onset constant tenderness in RLQ/right flank without associated GI or symptoms. Plan: Order CT abdomen/pelvis to evaluate intra-abdominal and retroperitoneal structures. Assess liver and gallbladder on imaging; consider targeted gallbladder ultrasound depending on CT findings. Symptomatic management: offer analgesia as needed (patient declined at this time). Re-evaluate following imaging results; discuss findings and further management. Problem #2: Chronic back and groin pain Assessment: Long-standing back and groin pain; currently scheduled for outpatient ultrasound tomorrow; prior hip surgery and recent orthopedic evaluation with labs and physical exam to rule out hip etiology. Plan: Include lumbar region in today?s CT to evaluate for structural causes. Coordinate with orthopedics regarding pending ultrasound results and prior lab work. Pain control as needed per patient preference. Return precautions for worsening pain or other concerns. Problem #3: Systemic lupus erythematosus (history of) Assessment: Known history; no acute flare reported today. Plan: No acute changes at this time. Differential Diagnosis Differential Diagnoses: The differential diagnosis associated with the presentation includes Differential Diagnosis Ovarian pathology (e.g., ovarian cyst, torsion)-- less likely not acute in onset Gallbladder disease (e.g., cholelithiasis, cholecystitis) Musculoskeletal pain (referred from back/hip) Renal/ureteral stone Infectious colitis Lupus-related abdominal pain/vasculitis Less likely: diverticulitis (no history), inflammatory bowel disease, or other intra-abdominal pathology Admission/Observation Consideration of admission/observation: Escalation of care including admission/observation considered Lab Data MDM Lab Attestation statement: I reviewed the patient's lab results. 02/27/25 10:30 02/27/25 10:50 Labs: Lab Results 02/27/25 02/27/25 Range/Units 10:30 10:50 WBC 6.2 (4.8-10.8) X10*3/uL RBC 3.95 L (4.20-5.50) X10*6/uL Hgb 12.0 (12.0-16.0) g/dl Hct 36.5 L (37.0-47.0) % MCV 92.4 (80.0-98.0) fL MCH 30.4 (27.0-33.0) pg MCHC 32.9 (31.0-35.0) g/dl RDW 13.0 (11.0-16.0) % Plt Count 174 (160-400) X10*3/uL MPV 11.3 (9.4-12.3) fL Immature Gran % (Auto) 0.3 (0.0-0.4) % Neut % (Auto) 59.5 (45-73) % Lymph % (Auto) 26.2 (20-40) % [place] % (Auto) 12.0 H (2-11) % Eos % (Auto) 1.3 (0-4) % Baso % (Auto) 0.7 (0-2) % Lymph # (Auto) 1.6 (1.2-4.9) X10*3/uL [place] # (Auto) 0.7 (0.1-1.2) X10*3/uL Eos # (Auto) 0.1 (0.0-0.4) X10*3/uL Baso # (Auto) 0.0 (0.0-0.2) X10*3/uL Abs Immat Gran (auto) 0.02 (0.00-0.03) X10*3/uL Absolute Neuts (auto) 3.7 (2.0-8.3) x10*3/uL Absolute Nucleated RBC 0.000 (0.0-0.012) X10*3/uL Nucleated RBC % (auto) 0.0 (0.0-0.2) /100WBC Sodium 143 (135-145) mmol/L Potassium 3.6 (3.3-5.1) mmol/L Chloride 107 (96-108) mmol/L Carbon Dioxide 26 (22-29) mmol/L Anion Gap 14 (12-20) BUN 14 (9-16) mg/dL Creatinine 0.80 (0.5-1.4) mg/dL Estim Creat Clear Calc 65.5 Estimated GFR > 60 Random Glucose 75 (60-115) mg/dL Calcium 9.0 (8.4-10.2) mg/dL Magnesium 2.0 (1.6-2.6) mg/dL Total Bilirubin 0.6 (0.0-1.0) mg/dL AST 46 H (5-31) U/L ALT 58 H (0-31) U/L Alkaline Phosphatase 152 H (39-117) U/L Total Protein 6.4 L (6.5-8.0) g/dL Albumin 3.8 (3.5-5.0) g/dL Lipase 20 (8-78) U/L Urine Color Dark Yellow Urine Appearance Cloudy Urine pH 5.5 (5.0-9.0) Ur Specific [place] >= 1.030 H (1.005-1.025) Urine Protein 30 (1+) H (Neg-Trace) mg/dL Urine Glucose (UA) Negative (Negative) mg/dL Urine Ketones Trace (Negative) mg/dL Urine Blood Negative (Negative) Urine Nitrite Negative (Negative) Ur Leukocyte Esterase Small (1+) H (Negative) Urine RBC 0-2 (0-2) /HPF Urine WBC 11-20 H (0-5) /HPF Ur Squamous Epith Cells 6-10 (0-2) /HPF Urine Bacteria Trace (None Seen) Hyaline Casts >20 (0-2) /LPF Influenza Type A (PCR) NEGATIVE (Negative) Influenza Type B (PCR) NEGATIVE (Negative) RSV RNA Qual (PCR) NEGATIVE (Negative) SARS-CoV-2 RNA (RT-PCR) NEGATIVE (Negative) Independent Interpretation I performed an independent interpretation of an: Ultrasound (US reviewed ) and CT Scan (CT abd reviewed ) Radiology Impression Discussion of test interpretation with radiology: I have reviewed the radiologist's reading. External Record Review External record reviewed: Inpatient record, Office record, Outpatient record, Prior outpatient labs, Prior outpatient radiology and Primary care record Chronic Conditions Patient?s care impacted by: Other (see hpi ) Critical Care Time Critical Care Time Critical Care Time: Yes Total Critical Care Time: 35 Attestation: I attest to this time spent taking care of the patient, obtaining history, physical, reviewing labs, imaging, treatment of patients condition +/- specialist/hospitalist consult +/- procedure Discharge Plan Discharge Clinical Impression: Abdominal pain, UTI (urinary tract infection), Diverticulitis, Mesenteric panniculitis Patient Disposition: Home, Self-Care Instructions: Abdominal Pain (ED) Additional Instructions: Take your medications as prescribed. If you were prescribed antibiotics today, it is important that you take your medication to their entirety, do not skip any doses, do not finish them early. Follow-up with your primary care provider this week. Return to the emergency department with new or worsening symptoms. Such as fevers, chills, chest pain, shortness of breath, nausea, vomiting, dizziness, headache, vision changes, lethargy In case of emergency call 911 Toradol has been sent to your pharmacy, you tolerated this well in the department. Please take this as prescribed do not take this with ibuprofen, or other NSAIDs, do not mix this with alcohol. Side effects of this medication including increased risk for bleeding and possible kidney injury. Findings: There are no gallstones. There is no gallbladder wall thickening or pericholecystic fluid. Common bile duct diameter estimated at 6 mm. Impression: 1. No cholelithiasis or evidence of biliary obstruction. This document has been electronically signed by: Rae Luz MD on 02/27/2025 15:30:07 Findings: The lung bases are clear. There is a small left kidney cysts. There is a 3 mm nonobstructive calculus within the right kidney. No ureteral calculus or hydronephrosis. Remaining abdominal organs are unremarkable. There are no calcified gallstones. There is thickening of a diverticulum within the midsigmoid colon. No obvious adjacent mesenteric edema. No colitis or bowel obstruction. Status post hysterectomy. Mildly limited evaluation of pelvic contents secondary to metallic artifact. Grossly unremarkable urinary bladder. Appendix not definitively seen. No secondary findings to suggest appendicitis. No acute fracture. IMPRESSION: 1. There may be a mild degree of diverticulitis of the sigmoid colon. 2. Tiny nonobstructive calculus within the right kidney. 3. There is mild infiltration of portions of the central mesentery. No lymphadenopathy. 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 Prescriptions: New amoxicillin-pot clavulanate 875-125 mg tablet 1 tab PO BID 7 Days Qty: 14 0RF ketorolac 10 mg tablet 10 mg PO TID PRN (Reason: pain) 5 Days Qty: 15 0RF Rx Instructions: Tolerated IM or IV in department No Action citalopram 10 mg Tablet 10 mg PO DAILY lisinopril 10 mg Tablet 10 mg PO DAILY hydrochlorothiazide 12.5 mg Tablet 12.5 mg PO DAILY metronidazole 500 mg tablet 500 mg PO TID 7 Days Qty: 21 0RF doxycycline hyclate 100 mg capsule 100 mg PO BID 7 Days Qty: 14 0RF albuterol sulfate 90 mcg/actuation HFA aerosol inhaler 1 inh inhalation QID PRN (Reason: shortness of breath or wheezing) Qty: 6.7 1RF amoxicillin-pot clavulanate 875-125 mg tablet 1 tab PO BID 10 Days Qty: 20 0RF prednisone 20 mg tablet 40 mg PO DAILY 5 Days Qty: 10 0RF Referrals: Boone Escalante MD [Primary Care Provider, Medical] Stand Alone Forms: Work/School Release Print Language: Andorran
[2025-02-27 10:37] LABS: MANUAL DIFF FLAG NO
[2025-02-27 10:39] LABS: Hematocrit 36.5 % (37.0-47.0); Hemoglobin 12.0 g/dl (12.0-16.0); Imm Gran Abs Auto 0.02 X10*3/uL (0.00-0.03); Imm Gran Pct Auto 0.3 % (0.0-0.4); Lymphocytes Absolute Auto 1.6 X10*3/uL (1.2-4.9); Mean Corpuscular HGB Conc 32.9 g/dl (31.0-35.0); Mean Corpuscular Hemoglobin 30.4 pg (27.0-33.0); Mean Corpuscular Volume 92.4 fL (80.0-98.0); NRBC Abs Auto 0.000 X10*3/uL (0.0-0.012); NRBC Pct Auto 0.0 /100WBC (0.0-0.2); Platelet Count 174 X10*3/uL (160-400); Red Blood Count 3.95 X10*6/uL (4.20-5.50); White Blood Count 6.2 X10*3/uL (4.8-10.8)
[2025-02-27 10:50] LABS: Appearance Urine Cloudy; Glucose Urine UA Negative (Negative); PH 5.5 (5.0-9.0); Specific Gravity - Urine >= 1.030 (1.005-1.025); UMIC TRIGGER UACC YES
[2025-02-27 11:04] LABS: UACC Culture Trigger YES
[2025-02-27 11:15] LABS: Resp Syncy Virus RNA Qual PCR NEGATIVE (Negative); SARS COV2 PCR INHOUSE NEGATIVE (Negative)
[2025-02-27 11:33] LABS: Alanine Aminotransferase 58 U/L (0-31); Albumin Level 3.8 g/dL (3.5-5.0); Alkaline Phosphatase 152 U/L (39-117); Anion Gap 14 (12-20); Aspartate Amino Transferase 46 U/L (5-31); Blood Urea Nitrogen 14 mg/dL (9-16); Calcium 9.0 mg/dL (8.4-10.2); Carbon Dioxide 26 mmol/L (22-29); Chloride 107 mmol/L (96-108); Creatinine Clr Calc Pharmacy 65.5; Estimated Glomerular Filt Rate > 60; Lipase 20 U/L (8-78); Magnesium 2.0 mg/dL (1.6-2.6); Potassium 3.6 mmol/L (3.3-5.1); Sodium 143 mmol/L (135-145); Total Protein 6.4 g/dL (6.5-8.0)
[2025-02-27 12:06] VITALS: BP 136/65; PULSE 72; RESP 16; TEMP 36.9; O2SAT 98
[2025-02-27] MEDS: iohexoL 350 MG/ML 100 ML INFUS..BTL IV (12:45)
[2025-02-27 14:05] VITALS: BP 149/71; PULSE 74; RESP 18; TEMP 36.3; O2SAT 97
--- NOTE | 2025-02-27 14:05 | PC.NURSE ---
no change in assessment. awaits U/S. THis RB to approach provider for pain meds. Abd is soft, tender to touch. no distrention.
== END 2025-02-27 17:12 | disposition home or self-care (01) ==
PROVIDERS: Physician Assistant; Emergency Provider Emergency Medicine; PCP Internal Medicine
DX: K65.4 Sclerosing mesenteritis (principal); K57.20 Diverticulitis of large intestine with perforation and abscess without bleeding; N39.0 Urinary tract infection, site not specified; B96.20 Unspecified Escherichia coli [E. coli] as the cause of diseases classified elsewhere; M32.9 Systemic lupus erythematosus, unspecified; Z90.89 Acquired absence of other organs; Z03.818 Encounter for observation for suspected exposure to other biological agents ruled out
CPT/HCPCS: 74177; 76705; 80053; 81001; 83690; 83735; 85025; 87086; 87088; 87186; 87637; 96365; 96375; 99284; 99285; J0131; J1885; Q9967

== ENCOUNTER → 2025-02-27 10:26 | Outpatient (BNV) | payer OTHER, SELFPAY | PROVIDERS: Emergency Provider Emergency Medicine; PCP Internal Medicine; Visit Provider Radiology Diagnostic Radiology | DX: N20.0 Calculus of kidney (principal); R10.11 Right upper quadrant pain | CPT/HCPCS: 74177; 76705 ==